=== PATIENT | female | born 1950 | race Caucasian/White ===

== ENCOUNTER → 2023-06-03 06:35 | Day surgery (SDC) | payer OTHER, SELFPAY | LOC: GI 06:35 | PROVIDERS: ATTENDING PHYSICIAN Internal Medicine Gastroenterology | DX: Z12.11 Encounter for screening for malignant neoplasm of colon (principal); Z98.0 Intestinal bypass and anastomosis status; K64.8 Other hemorrhoids | CPT/HCPCS: G0121 ==

== ENCOUNTER → 2023-09-22 17:02 | Outpatient (REF) | payer OTHER, SELFPAY | LOC: WDC 17:02 | PROVIDERS: ATTENDING PHYSICIAN Physician Assistant Medical | DX: Z12.31 Encounter for screening mammogram for malignant neoplasm of breast (principal) | CPT/HCPCS: 77063; 77067 ==

== ENCOUNTER → 2023-12-30 12:38 | Outpatient (REF) | payer OTHER, SELFPAY | LOC: WDC 12:38 | PROVIDERS: ATTENDING PHYSICIAN Physician Assistant Medical | DX: R92.2 Inconclusive mammogram (principal) | CPT/HCPCS: 76641 ==

== ENCOUNTER → 2024-06-13 11:17 | Outpatient (REF) | payer OTHER, SELFPAY | LOC: HWRAD 11:17 | PROVIDERS: ATTENDING PHYSICIAN Physician Assistant Medical | DX: R35.0 Frequency of micturition (principal) | CPT/HCPCS: 76770 ==

== ENCOUNTER → 2025-02-06 10:19 | Outpatient (REF) | payer OTHER, SELFPAY | LOC: HWWDC 10:19 | PROVIDERS: ATTENDING PHYSICIAN Obstetrics & Gynecology Gynecology; FAMILY PHYSICIAN Physician Assistant Medical | DX: Z12.31 Encounter for screening mammogram for malignant neoplasm of breast (principal) | CPT/HCPCS: 77063; 77067 ==